=== PATIENT | male | born 1980 | race Caucasian/White ===

== ENCOUNTER 2024-02-10 20:07 | Inpatient (IN) | payer OTHER ==
[~2024-02-10] VITALS: Ht 170.2 cm; Wt 73.8 kg
--- NOTE | 2024-02-11 02:34 | NUR ---
An Electronic Health Record (EHR) downtime event occurred during this patient's care from 01/08/2024 to 02/11/2024. Documentation entered into the EHR post system recovery has been transcribed from written orders and documentation. For complete medical record information during this downtime period, please reference the patient's legal medical record in accordance with Health Information Management (HIM) and record retention policies.
[2024-02-11] MEDS ORDERED: BASAGLAR K100 UNIT/1 SQ (02:41)
[2024-02-11] MEDS ORDERED: JARDIANCE25 PO (02:43)
[2024-02-11] MEDS ORDERED: CRESTOR 10MG10 MG PO (02:44)
[2024-02-11] MEDS ORDERED: INDERAL LA 60MG60 MG PO (02:45)
[2024-02-11] MEDS ORDERED: ALEVE 220MG220 MG PO (02:46)
[2024-02-11] MEDS ORDERED: VOLTAREN GEL 1%1 TU TP (02:47)
[2024-02-11] MEDS ORDERED: OZEMPIC0.25 MG/02 SQ (02:47)
[2024-02-11] MEDS ORDERED: TUMS500 MG PO (02:49)
[2024-02-11] MEDS ORDERED: D3-5050000 IU PO (02:49)
[2024-02-11] MEDS ORDERED: Ondansetron 4 MG/2 ML VIAL IV PRN (04:15)
[2024-02-11] MEDS ORDERED: D5 1/2 NS 1,000 ML IV SCH (04:15)
[2024-02-11] MEDS ORDERED: Insulin Human Regular/NS 100 ML IV SCH (04:15)
[2024-02-11] MEDS ORDERED: Acetaminophen 325 MG TAB PO PRN (04:15)
--- NOTE | 2024-02-11 07:00 | NUR ---
Report received from TIP Teixeira; patient currently resting in bed with D5 1/2 NS and insulin running through his peripheral IV. Patient has another peripheral INT; no other lines or tubes are in place at this time. Patient is on room air and vital signs are within normal limits this morning.
[2024-02-11 08:00] VITALS: BP 117/73; PULSE 88; TEMP 98.3
[2024-02-11] MEDS ORDERED: Pantoprazole 40 MG in NS 10 ML IV SCH (09:00)
[2024-02-11 12:00] VITALS: BP 116/66; PULSE 83; TEMP 97.9
[2024-02-11] MEDS ORDERED: cefTRIAXone 1 G in Water For Injection,Sterile 10 ML IV SCH (12:00)
[2024-02-11] MEDS ORDERED: Folic Acid 1 MG TAB PO SCH (13:28)
[2024-02-11] MEDS ORDERED: Insulin Glargine-ygfn (Lantus) SQ ONE (13:30)
[2024-02-11] MEDS ORDERED: LORazepam 1 MG TAB PO PRN (13:30)
[2024-02-11] MEDS ORDERED: Dextrose (Glucose) 15 GM (4 x 3.75 GM) Chewable TABLET PACK PO PRN (13:45)
[2024-02-11] MEDS ORDERED: Glucagon 1 MG VIAL IM PRN (13:45)
[2024-02-11] MEDS ORDERED: Dextrose 50% Water 25 GM/50 ML SYRINGE IV PRN (13:45)
[2024-02-11 14:00] VITALS: BP 118/69; PULSE 81
[2024-02-11] MEDS ORDERED: Thiamine 100 MG TAB PO SCH (14:00)
[2024-02-11 16:00] VITALS: BP 117/65; PULSE 80; TEMP 98.2
[2024-02-11] MEDS ORDERED: Insulin Lispro (HumaLOG) SQ SCH (17:00)
[2024-02-11] MEDS ORDERED: Multivitamin TAB PO SCH (17:00)
[2024-02-11 20:00] VITALS: BP 116/71; PULSE 82; TEMP 97.8
[2024-02-11] MEDS ORDERED: Atorvastatin 20 MG TAB PO SCH (21:00)
[2024-02-11] MEDS ORDERED: Insulin Glargine-ygfn (Lantus) SQ SCH (21:00)
[2024-02-11] MEDS ORDERED: Doxycycline Hyclate 100 MG in NS 150 ML IV SCH (21:00)
--- NOTE | 2024-02-11 21:17 | NUR ---
TONIGHT PATIENT IS UP OUT OF BED, SHAVING AND BRUSHIN TEETH, WARM SOAKS TO BODY. ALL PERFORMED INDEPENDENTLY,
[2024-02-11 22:00] VITALS: BP 114/74; PULSE 71; TEMP 97.4
[2024-02-12] VITALS: BP 102/65; PULSE 73; TEMP 97.9
[2024-02-12 02:00] VITALS: BP 112/63; PULSE 64; TEMP 98.9
[2024-02-12 04:04] VITALS: BP 114/78; PULSE 72; TEMP 97.9
[2024-02-12 06:00] VITALS: BP 127/86; PULSE 72; TEMP 98.1
[2024-02-12 08:00] VITALS: BP 112/68; PULSE 73; TEMP 97.8
[2024-02-12] MEDS ORDERED: *Potassium Replacement Protocol MC SCH (09:15)
--- NOTE | 2024-02-12 10:47 | NUR ---
PATIENT IS ALERT AND ORIENTED X4 AND PLEASANT. PATIENT IS INDEPENDENT IN ROOM AND ON ROOM AIR. NO PAIN NOTED PER PATIENT. STATES HE IS FEELING MUCH BETTER. PATIENT DOES NOT HAVE ANY QUESTIONS OR CONCERNS AT THIS TIME. BED IN LOW POSITION AND CALL LIGHT WITHIN REACH.
[2024-02-12 12:00] VITALS: BP 141/95; PULSE 78; TEMP 97.7
--- NOTE | 2024-02-12 12:32 | NUR ---
composition worker met with patient to discuss discharge planning. Patient lives with his spouse in [place], [place] and will return there upon discharge. Patient has been independent with his activities of daily living and he has [employer] insurance through the [employer]. Patient states that his insurance does cover the cost of his insulin. Patient stated that Dr Nava is his primary care provider and that he doesn't have advance directives and doesn't care to make them at this time. Discharge plan: Home with spouse.
--- NOTE | 2024-02-12 13:00 | NUR ---
PATIENT WILL DSICHARGE THIS AFTERNOON. PATIENT WAITING FOR TO PICK HIM UP.
--- NOTE | 2024-02-12 14:16 | NUR ---
PATIENT DISCHARGED AT THIS TIME. DISCHARGE INSTRUCTIONS AND EDUCATION REVIEWED PRIOR TO DISCHARGE. DOCUMENTATION SIGNED. PATIENT NOT IN DISTRESS UPON DISCHARGE.
== END 2024-02-12 14:16 | disposition home or self-care (01) | DRG 637 ==
LOC: ICU 20:07
PROVIDERS: ADMIT Hospitalist
DX: E11.10 Type 2 diabetes mellitus with ketoacidosis without coma (principal); K85.90 Acute pancreatitis without necrosis or infection, unspecified; N17.9 Acute kidney failure, unspecified; E11.9 Type 2 diabetes mellitus without complications; Z79.4 Long term (current) use of insulin; F10.10 Alcohol abuse, uncomplicated; D69.6 Thrombocytopenia, unspecified; E87.6 Hypokalemia; E78.5 Hyperlipidemia, unspecified
CPT/HCPCS: C9113; J0696; J1650; J1815